=== PATIENT | female | born 1935 | race Caucasian/White ===

== ENCOUNTER 2017-03-22 08:31 | Day surgery (SDC) | payer MEDICARE, BC ==
[2017-03-22] MEDS ORDERED: LIDOCAINE 2% MDV (20MG/ML) 20ML VIAL IV ONE (14:00)
[2017-03-22] MEDS ORDERED: FENTANYL PF 100MCG/2ML VIAL IV ONE (14:00)
[2017-03-22] MEDS ORDERED: PROPOFOL 10 MG/ML VIAL IV ONE (14:00)
--- NOTE | 2017-03-25 11:50 | Operative Note ---
DATE OF SURGERY: 03/22/2017 OPERATION: COLONOSCOPY to the cecum. INDICATION: Colorectal cancer screening. ANESTHESIA: Intravenous sedation was administered by the department of anesthesiology and included Diprivan titrated to effect. PROCEDURE: Following informed consent from this alert individual including a discussion of the risks and benefits of the procedure and an opportunity for the patient to ask questions, the patient was in the left lateral decubitus position. A digital examination was performed. No abnormalities were noted. Following this, the Olympus [id number] video colonoscope was inserted into the rectum without resistance. The rectal mucosa had a normal appearance with normal folds and distensibility. The colonoscope was advanced up through the bowel to the level of the cecum with some difficulty. The patient's colon seemed to be somewhat redundant and she was placed in a supine position for the last part of the examination to facilitate reaching the cecum. The cecum was defined by noting the appendiceal orifice and ileocecal valve. The mucosa on initial inspection was endoscopically unremarkable. The colon preparation was good. From the base of the cecum, the colonoscope was then withdrawn. No abnormalities were noted until the rectum was reached. Retroflexion in the rectum revealed small internal hemorrhoids. The endoscope was straightened and removed. The patient tolerated the procedure well and was returned to the recovery area in stable condition. IMPRESSION: 1. Small internal hemorrhoids. 2. Otherwise unremarkable colonoscopy to the cecum. RECOMMENDATIONS: The patient was advised to follow up with Dr. aMxi Del Rio. She can follow up with GI as requested. As always, thank you for allowing me to participate in the care of your patient. CC: Dr. Eliane GUTIERREZ
--- NOTE | 2017-03-25 11:50 | Operative Note ---
DATE OF SURGERY: 03/22/2017 OPERATION: ESOPHAGOGASTRODUODENOSCOPY. INDICATION: Chronic gastroesophageal reflux with pyrosis, particularly in the evening. The patient states that she is doing a little bit better by taking her acid tato in the evening instead of in the morning. Upper endoscopy is performed at this time for further evaluation. Her last endoscopy was some 10 years ago. ANESTHESIA: Intravenous sedation was administered by the department of anesthesiology and included Diprivan titrated to effect. PROCEDURE: Following informed consent from this alert individual, including a discussion of the risks and benefits of the procedure and an opportunity for the patient to ask questions, the patient was in the left lateral decubitus position. The Olympus [id number] video endoscope was inserted into the esophagus without resistance. The proximal esophagus had a normal appearance with normal folds and distensibility. The mid and distal esophagus likewise was free from mucosal abnormalities. The squamocolumnar junction was smooth, well defined, and approximated the diaphragmatic hiatus. The structure was traversed and the stomach was entered. The gastric fundus and pars media had a normal appearance with normal folds and distensibility. The antrum evaluated circumferentially was unremarkable. The pylorus was patent. The duodenal bulb, sweep, and descending duodenum were examined in a serial fashion and found to be normal. The endoscope was then drawn back into the body of the stomach where retroflexion accomplished following air insufflation failed to demonstrate changes. The endoscope was then straightened and withdrawn back through a normal esophagus and removed from the patient. She tolerated the procedure well and was returned to the recovery area in stable condition. IMPRESSION: Unremarkable esophagogastroduodenoscopy. RECOMMENDATION: The patient can continue with acid blockade in the evening prior to dinner. She can follow up as needed. She will follow up with Dr. Del Rio as scheduled. As always, thank you for allowing me to participate in the care of your patient. BRENDA
== END 2017-03-22 10:32 | disposition home or self-care (01) ==
LOC: HOP 08:31
PROVIDERS: ATTEND Internal Medicine Gastroenterology
DX: Z12.11 Encounter for screening for malignant neoplasm of colon (principal); K64.8 Other hemorrhoids; E78.00 Pure hypercholesterolemia, unspecified; I10 Essential (primary) hypertension
CPT/HCPCS: 00810; 43235; G0121

== ENCOUNTER 2019-08-05 17:01 | Emergency (ER) | payer MEDICARE, OTHER ==
--- NOTE | 2019-08-05 17:31 | Emergency Department Record ---
History of Present Illness - General Stated Complaint: CONGESTION/COUGH Time Seen by Provider: 08/05/19 17:27 Source: Patient Mode of Arrival: Ambulatory Limitations: No limitations - History of Present Illness Initial Comments: 83 yo female presents to ED for evaluation of non-productive cough symptoms for the past 1 week, denies fevers, chills, nausea, or vomiting symptoms. Patient does report a coughing fit today which nearly resulted in syncope, patient denies LOC or injury, but reports that was confused after the event. Patient denies focal weakness, change in vision or speech, and denies health problems at her baseline. Patient did take cough syrup for her symptoms prior to arrival. MD Complaint: Cough Onset/Timin -: Week(s) Severity: Moderate Quality: Aching Consistency: Intermittent Improves With: Nothing Worsens With: Nothing Associated Symptoms: Denies other symptoms Treatments Prior to Arrival: "Cold medicine" - Related Data Home Medications Medication Instructions Recorded Confirmed Last Taken Calcium Carbonate [Calcium] 500 mg PO DAILY 08/05/19 08/05/19 08/05/19 Cholecalciferol (Vitamin D3) 2,000 unit PO DAILY 08/05/19 08/05/19 08/05/19 [Vitamin D3] Esomeprazole Magnesium [Nexium] 40 mg PO DAILY 08/05/19 08/05/19 08/05/19 Losartan/Hydrochlorothiazide 1 tab PO DAILY 08/05/19 08/05/19 08/05/19 [Losartan-Hctz 100-25 mg Tab] Multivitamin [One Daily 1 each PO 08/05/19 08/05/19 Multivitamin] Nitrofurantoin Macrocrystal 50 mg PO DAILY 08/05/19 08/05/19 08/05/19 [Nitrofurantoin] Raloxifene HCl 60 mg PO DAILY 08/05/19 08/05/19 08/05/19 Simvastatin 20 mg PO DAILY 08/05/19 08/05/19 08/05/19 Ubidecarenone [Co Q-10] 10 mg PO DAILY 08/05/19 08/05/19 08/05/19 Previous Rx's Medication Instructions Recorded Albuterol Sulfate [Proair Hfa] 1 - 2 puff IH .EVERY 4-6 HOURS PRN 08/05/19 #1 inhaler Doxycycline Hyclate 100 mg PO BID #14 cap 08/05/19 Prednisone [Prednisone 20Mg] 20 mg PO BID #12 tab 08/05/19 Allergies Allergy/AdvReac Type Severity Reaction Status Date / Time ciprofloxacin [From Cipro] AdvReac BODY ACHES Verified 08/05/19 18:02 Sulfa (Sulfonamide AdvReac RASH Verified 08/05/19 18:02 Antibiotics) Review of Systems Constitutional: Denies: Chills, Fever, Malaise, Night sweats Eyes: Denies: Eye discharge, Eye pain ENT: Reports: Congestion. Denies: Epistaxis Respiratory: Reports: Cough. Denies: Dyspnea, Hemoptysis Cardiovascular: Denies: Chest pain, Dyspnea on exertion Endocrine: Denies: Fatigue, Heat or cold intolerance Gastrointestinal: Denies: Abdominal pain, Nausea, Vomiting Genitourinary: Denies: Incontinence, Retention Musculoskeletal: Denies: Arthralgia, Back pain Skin: Denies: Bruising, Change in color Neurological: Denies: Abnormal gait, Confusion, Headache, Tingling, Tremors Psychiatric: Denies: Anxiety Hematological/Lymphatic: Denies: Anemia, Blood Clots Past Medical History - SOCIAL HISTORY Smoking Status: Never smoker - RESPIRATORY Hx Respiratory Disorders: Yes Comment:: 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 - CARDIOVASCULAR Hx Cardio Disorders: Yes Hx Hypertension: Yes Comment:: HIGH CHOLESTEROL - NEURO Hx Neuro Disorders: No - GI Hx GI Disorders: Yes Hx Reflux: Yes - Hx Genitourinary Disorders: No - ENDOCRINE Hx Endocrine Disorders: No - MUSCULOSKELETAL Hx Musculoskeletal Disorders: Yes Comment:: OSTEOPENIA - PSYCH Hx Psych Problems: No - HEMATOLOGY/ONCOLOGY Hx Hematology/Oncology Disorders: Yes Hx Blood Transfusions: Yes Hx Blood Transfusion Reaction: No Physical Exam - General General Appearance: Alert, Oriented x3, Cooperative, Mild distress Limitations: No limitations - Head Head exam: Atraumatic, Normocephalic, Normal inspection Head exam detail: negative: Abrasion, Contusion, Goyal's sign, General tenderness, Hematoma, Laceration - Eye Eye exam: Normal appearance. negative: Conjunctival injection, Periorbital swelling, Periorbital tenderness, Scleral icterus - ENT Ear exam: negative: Auricular hematoma, Auricular trauma Nasal Exam: negative: Active bleeding, Discharge, Dried blood, Foreign body Mouth exam: negative: Drooling, Laceration, Muffled voice, Tongue elevation - Neck Neck exam: Normal inspection. negative: Meningismus, Tenderness - Respiratory Respiratory exam: Normal lung sounds bilaterally. negative: Respiratory distress, Rhonchi, Stridor, Wheezes - Cardiovascular Cardiovascular Exam: Regular rate, Normal rhythm, Normal heart sounds - GI/Abdominal GI/Abdominal exam: Soft. negative: Distended, Rebound, Rigid, Tenderness - Rectal Rectal exam: Deferred - exam: Deferred - Extremities Extremities exam: Normal inspection. negative: Pedal edema, Tenderness - Back Back exam: Denies: CVA tenderness (R), CVA tenderness (L) - Neurological Neurological exam: Alert, Normal gait, Oriented X3 - Psychiatric Psychiatric exam: Normal affect, Normal mood - Skin Skin exam: Normal color. negative: Abrasion Type of lesion: negative: abrasion Course - Reevaluation(s) Reevaluation #1: 08/05/19 17:55 EKG: NSR 91 with PVC present Normal axis, normal intervals No acute ST-T wave changes Reevaluation #2: 08/05/19 18:04 Laboratory studies were reviewed and appear grossly unremarkable for an acute process except for the following: WBC 3.3 Laboratory studies indicate likely viral process resulting in mild neutropenia. CXR: No acute cardio-pulmonary process Patient was updated on all results, symptoms are likely the result of acute bronchitis. Patient appears stable for discharge with treatment including Prednisone, Proair inhaler, and Doxycyline as directed. Patient and her daughter are in agreement with the plan of care as discussed. Medical Decision Making - Lab Data Result diagrams: 08/05/19 17:42 08/05/19 17:42 Disposition Disposition: Discharge Clinical Impression: Acute bronchitis Qualifiers: Bronchitis organism: unspecified organism Qualified Code(s): J20.9 - Acute bronchitis, unspecified Disposition: Home, Self-Care Condition: (2) Stable Instructions: Acute Bronchitis (ED) Additional Instructions: Return to ED if your symptoms worsen or if you have any concerns. Prednisone, Doxycycline as directed. Follow-up with your family doctor in 3-5 days as directed. Prescriptions: Doxycycline Hyclate 100 mg PO BID #14 cap Prednisone [Prednisone 20Mg] 20 mg PO BID #12 tab Albuterol Sulfate [Proair Hfa] 1 - 2 puff IH .EVERY 4-6 HOURS PRN #1 inhaler PRN Reason: Difficulty In Breathing Time of Disposition: 18:39 Quality - Quality Measures Quality Measures: N/A - Blood Pressure Screening Does Patient Have Any of the Following: No Blood Pressure Classification: Hypertensive Reading Systolic Measurement: 197 Diastolic Measurement: 92 Screening for High Blood Pressure: < First Hypertensive BP, F/U Documented > [ [id number]] First Hypertensive Follow-up Interventions: Referral to alternative/primary care provider.
[2019-08-05 17:49] LABS: HEMATOCRIT 39.1 % (35.0-47.0); HEMOGLOBIN 13.2 gm/dl (11.6-16.0); MEAN CELL VOLUME 85.9 fl (81-97); MEAN CORPUSCULAR HGB CONC 33.8 g/dl (32-36); MEAN PLATELET VOLUME 10.4 fl (7.4-10.4); PLATELET COUNT 217 K/uL (130-400); RED BLOOD COUNT 4.55 M/uL (3.80-5.40); RED CELL DISTRIBUTION WIDTH 13.1 % (11.5-14.5); WHITE BLOOD COUNT W/O DIFF 3.3 K/uL (4.2-12.2)
[2019-08-05 17:58] LABS: BLOOD UREA NITROGEN 18 mg/dL (8-23); CREATININE 0.9 mg/dL (0.5-0.9); EST GLOMERULAR FILTRATION RATE > 60 mL/min
[2019-08-05 17:59] LABS: TOTAL PROTEIN 7.9 g/dL (6.6-8.7)
[2019-08-05 18:01] LABS: GLUCOSE,RANDOM 121 mg/dL (74-109)
[2019-08-05 18:04] LABS: ALB/GLOB RATIO 1.2 (1.1-1.8); ALBUMIN 4.3 g/dL (4.0-5.0); ALKALINE PHOSPHATASE 81 U/L (35-104); ALT/SGPT 19 U/L (<33); AST/SGOT 40 U/L (10.0-35.0)
--- NOTE | 2019-08-05 18:32 | RADIOLOGY REPORT ---
EXAMINATION: Two View Chest Radiographs EXAM DATE: 08/05/2019 6:02 PM TECHNIQUE: Frontal and lateral views INDICATION: cough COMPARISON: Chest x-ray 03/07/2019 ENCOUNTER: Not applicable FINDINGS: The heart, mediastinum, and pulmonary vasculature are normal. No lung consolidation or pleural effu sions are present. IMPRESSION: No acute cardiopulmonary disease is present. Dictated by: Je Villar MD on 08/05/2019 6:29 PM. .
== END 2019-08-05 19:12 | disposition home or self-care (01) ==
LOC: ER 17:01
DX: J20.9 Acute bronchitis, unspecified (principal); I10 Essential (primary) hypertension
CPT/HCPCS: 71046; 80053; 85027; 93005; 93010; 99284